=== PATIENT | female | born 1985 | race Caucasian/White ===

== ENCOUNTER 2017-01-12 10:04 | Emergency (ER) | payer OTHER ==
[~2017-01-12] VITALS: Ht 160 cm; Wt 105.0 kg
[2017-01-12 10:09] VITALS: Ht 160 cm; Wt 105.0 kg
[2017-01-12 12:33] LABS: ADD SCAN DIFF NO
[2017-01-12 12:38] LABS: BASOPHILS % 0.5 % (0.0-2.0); EOSINOPHILS # 0.1 10^3/ul (0.0-0.5); EOSINOPHILS % 0.9 % (0.0-7.0); HEMATOCRIT 39.4 % (37.0-47.0); HEMOGLOBIN 13.2 g/dl (12.0-16.0); LYMPHOCYTES # 1.9 10^3/ul (0.8-2.9); LYMPHOCYTES % 29.1 % (15.0-51.0); MEAN CORPUSCULAR HEMOGLOBIN 28.8 pg (29.0-33.0); MEAN CORPUSCULAR HGB CONC 33.5 g/dl (32.0-37.0); MEAN CORPUSCULAR VOLUME 85.8 fl (82.0-101.0); MEAN PLATELET VOLUME 10.9 fl (7.4-10.4); MONOCYTE # 0.6 10^3/ul (0.3-0.9); NEUTROPHILS % 60.3 % (39.0-77.0); PLATELET COUNT 228 10^3/UL (140-415); RED BLOOD COUNT 4.59 10^6/ul (4.20-5.40); RED CELL DISTRIBUTION WIDTH 12.6 % (11.5-14.5); WHITE BLOOD COUNT 6.6 10^3/ul (4.8-10.8)
[2017-01-12 12:55] LABS: ALBUMIN 4.7 g/dl (3.3-4.9)
[2017-01-12 12:56] LABS: POTASSIUM 3.8 mmol/L (3.5-5.1)
[2017-01-12 12:58] LABS: ALBUMIN/GLOBULIN RATIO 1.38; BILIRUBIN,INDIRECT 0.5 mg/dl (0-1.1); BILIRUBIN,TOTAL 0.5 mg/dl (0.2-1.3); CREATININE 0.74 mg/dl (0.44-1.00); TOTAL PROTEIN 8.1 g/dl (6.1-8.1)
[2017-01-12 12:59] LABS: CALCIUM 9.2 mg/dl (8.4-10.2)
[2017-01-12] MEDS ORDERED: MEDR10TA2 PO (15:06)
--- NOTE | 2017-01-12 15:10 | ERD ---
ER Documentation Chief Complaint Date/Time DATE: 01/12/17 TIME: 15:08 Chief Complaint vag bleed x 1 month HPI This 31-year-old female presents with intermittent vaginal bleeding for last month. She may have a few clots in the morning time, and it appears in the afternoon. She denies any shortness of breath or chest pain dysuria, vaginal discharge. Her menses were normal prior to that. She denies any known history of irregular periods, ovarian cyst, denies weight gain. ROS All systems reviewed and are negative except as per history of present illness. Medications Home Meds Active Scripts Medroxyprogesterone Acetate* (Provera*) 10 Mg Tablet, 10 MG PO DAILY, #7 TAB Prov:DARRYN SOTO MD 01/12/17 PMhx/Soc Medical and Surgical Hx: pt denies Medical Hx, pt denies Surgical Hx Hx Alcohol Use: No Hx Substance Use: No Hx Tobacco Use: No Smoking Status: Never smoker Physical Exam Vitals Vital Signs Date Time Temp Pulse Resp B/P Pulse Ox O2 Delivery O2 Flow Rate FiO2 01/12/17 10:09 99.0 84 18 153/88 98 Physical Exam Const: [] Alert, not ill-appearing. Morbidly obese Head: Atraumatic Eyes: Normal Conjunctiva ENT: Normal External Ears, Nose and Mouth. Neck: Full range of motion..~ No meningismus. Resp: Clear to auscultation bilaterally Cardio: Regular rate and rhythm, no murmurs Abd: Soft, non tender, non distended. Normal bowel sounds Skin: No petechiae or rashes Back: No midline or flank tenderness Ext: No cyanosis, or edema Neur: Awake and alert Psych: Normal Mood and Affect Result Diagram: 01/12/17 1220 01/12/17 1220 Results 24 hrs Laboratory Tests Test 01/12/17 12:17 01/12/17 12:20 Urine Test NEGATIVE White Blood Count 6.610^3/ul Red Blood Count 4.5910^6/ul Hemoglobin 13.2g/dl Hematocrit 39.4% Mean Corpuscular Volume 85.8fl Mean Corpuscular Hemoglobin 28.8pg Mean Corpuscular Hemoglobin Concent 33.5g/dl Red Cell Distribution Width 12.6% Platelet Count 27393^3/UL Mean Platelet Volume 10.9fl Neutrophils % 60.3% Lymphocytes % 29.1% Monocytes % 9.0% Eosinophils % 0.9% Basophils % 0.5% Nucleated Red Blood Cells % 0.0/100WBC Neutrophils # 4.010^3/ul Lymphocytes # 1.910^3/ul Monocytes # 0.610^3/ul Eosinophils # 0.110^3/ul Basophils # 0.010^3/ul Nucleated Red Blood Cells # 0.010^3/ul Sodium Level 139mmol/L Potassium Level 3.8mmol/L Chloride Level 102mmol/L Carbon Dioxide Level 26mmol/L Anion Gap 15 Blood Urea Nitrogen 13mg/dl Creatinine 0.74mg/dl Glucose Level 94mg/dl Calcium Level 9.2mg/dl Total Bilirubin 0.5mg/dl Direct Bilirubin 0.00mg/dl Indirect Bilirubin 0.5mg/dl Aspartate Amino Transf (AST/SGOT) 26IU/L Alanine Aminotransferase (ALT/SGPT) 37IU/L Alkaline Phosphatase 56IU/L Total Protein 8.1g/dl Albumin 4.7g/dl Globulin 3.40g/dl Albumin/Globulin Ratio 1.38 Procedures/MDM CBC is normal. CMP is also normal. Urine is negative for leukocytes, nitrites , glucose, blood. HCG is negative. Pelvic ultrasound shows a right ovarian cyst without acute abnormalities. There is no evidence of torsion or . Patient presents with metrorrhagia of uncertain etiology for last month. She was given a short trial of Provera for 1 week. Patient was advised he may need control pills and further observation treatment. Patient is quite obese suggesting the possibility of possibly polycystic ovarian disease but further treatment will depend on evaluation by primary doctor. Patient was advised to return for fevers, vomiting, shortness breath, new or worsening symptoms. The patient was stable with no new complaints during the ER course. Clinically, there is no current evidence to suggest meningitis, sepsis, acute abdomen, pneumonia, acute coronary syndrome, pulmonary embolism, or any other emergent condition appearing to require further evaluation or hospitalization. The patient should certainly return for any new or worsening symptoms per the aftercare instructions. They should otherwise follow-up with her primary care doctor for reevaluation this week. Departure Diagnosis: Primary Impression: Vaginal bleeding Condition: Stable Patient Instructions: Dysfunctional Uterine Bleeding Additional Instructions: Examinations today showed no acute abnormalities. See primary doctor for further evaluation and management. Return otherwise for new or worsening symptoms-fevers, vomiting, shortness of breath, pain. DARRYN SOTO MD January 12, 2017 15:10
--- NOTE | 2017-01-12 15:15 | RADRPT ---
PROCEDURE: US Pelvis. CLINICAL INDICATION: Abnormal vaginal bleeding. TECHNIQUE: The pelvis was evaluated with transabdominal and transvaginal sonography in the axial a nd sagittal planes. COMPARISON: No prior study is available for comparison. FINDINGS: Uterus: 8.7 x 4.4 x 5.0 cm. Endometrium: 14.3 mm. Right ovary: 5.8 x 4.4 x 5.0 cm. Left ovary: 3.6 x 2.1 x 2.3 cm. Uterine masses: Small benign Nabothian cysts are present in the cervix. The uterus is otherwise unr emarkable. Ovarian masses: There is a benign-appearing right ovarian cyst measuring 4.4 x 3.6 x 3.8 cm. There are no internal echoes or septations. The ovaries are otherwise normal. Color Doppler and pulsed Do ppler sonography demonstrate normal flow to the ovaries. Other pelvic masses: None. Free fluid: None. IMPRESSION: 1. Benign Nabothian cysts in the cervix. 2. Benign-appearing right ovarian cyst measuring up to 4.4 cm in maximal dimension. Follow-up ultr asound in 6 weeks is advised. 3. Otherwise unremarkable study. RPTAT: QQ .Kali Benson MD, MD Date Time Electronically viewed and signed by .Kali Benson MD, on 01/12/2017 15:14 .R/
[2017-01-12 15:21] VITALS: BP 119/65; PULSE 76; RESP 19; TEMP 98.3
== END 2017-01-12 15:22 | disposition home or self-care (01) ==
LOC: FTE 10:04
DX: N93.9 Abnormal uterine and vaginal bleeding, unspecified (principal)
CPT/HCPCS: 76830; 76856; 80053; 84703; 85025; Z7502